=== PATIENT | female | born 1995 | race Caucasian/White ===

== ENCOUNTER 2016-11-05 20:11 | Emergency (ER) | payer OTHER ==
[~2016-11-05] VITALS: Ht 157.5 cm; Wt 54.1 kg
[2016-11-05 20:30] VITALS: BP 119/72; PULSE 102; RESP 12; O2SAT 100
--- NOTE | 2016-11-05 23:38 | ED.REPORT ---
HPI-Abd Pain F Under 39 Date of Service Nov 05, 2016 ED Provider: Morgan Drake DO A 20 year old female with a history of ovarian cysts presents to the ED complaining of abdominal pain onset 1.5 week. Her 1st ovarian cyst rupture occurred 1 month ago. She denies any STI. She does have a family doctor who has been informed on the patient's condition. Nursing Notes Stated Complaint: BAD ABD PAIN,WAS TOLD SHE HAD OVARIAN CYSTS Chief Complaint: Female Abdominal Pain Nursing Notes Reviewed: Yes Allergies: Coded Allergies: No Known Allergies (Unverified , 11/05/16) General Time Seen by MD: 23:37 Chief Complaint Abdominal pain Hx Obtained From: Patient Arrived By: Walk-in Sudden in Onset?: No Onset Occurred: More than a week ago... (1.5 weeks ago) Symptom Duration: Since onset Severity: Current: Moderate Severity: Maximum: Moderate Recent Healthcare: Recent doctor visit (Visited Doctor 1 month ago and was diagnosed with ovarian cysts. ) Similar Sx Previous: No Past Medical History Past Medical History ovarian cysts, not had US before. Denies any other pertinent medical history. [place] Social History: Good social support Ambulatory Status Independent Review of Systems Review of Systems Note: Denies having STI. Constitutional: Denies: Chills, Fever Respiratory: Denies: Non-productive cough Cardiovascular: Denies: Chest pain GI: Reports: Abdominal pain Complete sys rev & neg: except as marked. Physical Exam Initial Vital Signs Vital Signs (First) Date Time Temp Pulse Resp B/P Pulse Ox O2 Delivery O2 Flow Rate FiO2 11/05/16 20:30 37.1 102 12 119/72 100 Room Air Initial VS: Reviewed General/Constitutional: Awake, Alert Respiratory / Chest: Atraumatic, Breath sounds NL, Breath sounds = bilat, No respiratory distress, No rales, No rhonchi, No wheezing Cardiovascular: Heart rate NL, Regular rhythm, Heart sounds NL, No gallop, No murmurs, No rubs Abdomen: Soft, Non-tender Back: Atraumatic, Full range of motion Head / Eyes: Atraumatic, Normocephalic, PERRL, EOMI ENT: Atraumatic, Airway patent Skin: Atraumatic, Color NL, Warm, Dry Neurologic: Oriented X3, Speech NL Upper Extremity / MS: No swelling, No edema Interpretation & Diagnostics Interpretation & Diagnostics: Negative test. Lab Results Interpretation Result Diagram: 11/06/16 0035 11/06/16 0035 Test 11/05/16 23:48 11/06/16 00:35 Urine Color Dark yellow (YELLOW) Urine Appearance Cloudy (CLEAR,HAZY) Urine pH 6.0 (5.0-8.0) Urine Specific Erhard 1.020 (1.003-1.035) Urine Protein Negativemg/dL (NEG,TRACE) Urine Glucose (UA) Negativemg/dL (NEGATIVE) Urine Ketones 40mg/dL (NEGATIVE) Urine Occult Blood Negative (NEGATIVE) Urine Nitrite Negative (NEGATIVE) Urine Bilirubin Negative (NEGATIVE) Urine Urobilinogen 2.0mg/dL (NORMAL) Urine Leukocyte Esterase Trace (NEGATIVE) Urine RBC 0-2/hpf (0-2) Urine WBC 0-5/hpf (0-5) Urine Epithelial Cells Many/hpf (NONE-MOD) Urine Crystals None seen (NONE SEEN) Urine Bacteria Moderate/hpf (NONE-FEW) Urine Hyaline Casts None/lpf (NONE) Urine Granular Casts None seen (NONE SEEN) Urine Waxy Casts None seen (NONE SEEN) Urine Red Blood Cell Casts None seen (NONE SEEN) Urine White Blood Cell Casts None seen (NONE SEEN) Urine Mucus Present (None Seen) Urine Trichomonas None seen (NONE SEEN) Urine Yeast None (NONE SEEN) Urinalysis Comment None White Blood Count 10.0th/mm3 (3.8-10.1) Red Blood Count 4.42mil/mm3 (3.90-5.20) Hemoglobin 13.0g/dL (12.0-15.6) Hematocrit 37.6% (35.0-46.0) Mean Corpuscular Volume 85.1fL (81-100) Mean Corpuscular Hemoglobin 29.4pg (27.0-35.0) Mean Corpuscular Hemoglobin Concent 34.6% (32.0-37.0) Red Cell Distribution Width 12.6% (12.3-15.4) Platelet Count 231bil/L (150-400) Neutrophils (%) (Auto) 70.9% (40-74) Lymphocytes (%) (Auto) 19.7% (14-46) Monocytes (%) (Auto) 7.0% (4-12) Eosinophils (%) (Auto) 2.0% (0-5) Basophils (%) (Auto) 0.2% (0-3) Sodium Level 136mEq/L (134-144) Potassium Level 3.5mEq/L (3.5-5.2) Chloride Level 98mEq/L (97-108) Carbon Dioxide Level 22mmol/L (18-29) Blood Urea Nitrogen 8mg/dL (6-20) Creatinine 0.67mg/dL (0.57-1.00) Estimat Glomerular Filtration Rate 159mL/min (>59) Glucose Level 106mg/dL (60-99) Calcium Level 8.9mg/dL (8.5-10.1) Total Bilirubin 0.5mg/dL (0.0-1.2) Aspartate Amino Transf (AST/SGOT) 19U/L (0-50) Alanine Aminotransferase (ALT/SGPT) 19U/L (0-32) Alkaline Phosphatase 78U/L (25-150) Total Protein 6.8g/dL (6.4-8.4) Albumin 3.9g/dL (3.4-5.0) HCG Beta Subunit < 0.500mIU/mL Hold Chaves Top Tube Received (Received) Lab Results Interpretation: US PELVIS TRANSVAGINAL CONCLUSION: Small ammount of pelvic free fluid. Signed by Ajit Connolly, 11/06/2016 , 0047 Re-Eval/Medical Decision Med Decision/Clinical Course It is difficult to say exactly what we are finding on the imaging. Ovarian torsion and appendicitis and acute surgical emergencies have been ruled out. Course of [place] for pain. Most importantly referral to gynecology for close outpatient follow-up. Source of Hx: Old records Re-Evaluation/Progress #1: Time of Eval: 00:28 Re-Evaluation/Progress Note: Rechecked patient who has not had IV or blood work done yet. Re-Evaluation/Progress #2: Time of Eval: 02:45 Re-Evaluation/Progress Note: Rechecked patient, explained test results, diagnosis, and plan for discharge. Patient understands and agrees with the plan. All questions addressed. Counseled Regarding: Diagnosis, Lab results, Need for follow-up, When/why to return to ED Discharge & Departure Shift Change Sign-Out Response to Therapy: Improved Primary Impression: Pelvic pain Disposition: Home Patient Instructions: Chronic Pelvic Pain in Women (DC) Additional Instructions: The ultrasound shows a small amount of fluid in her abdomen. This may well be from a ruptured cyst. Otherwise ultrasound is reassuring. Laboratory work is normal. We are culturing her urine sample to look for signs of infection. I have also sent her urine for pelvic infection testing. Rest tonight. He quit diet. Take 1-2 [place] every 6 hours as needed for severe pain. Do not drive tonight or while taking the [place]. Do not consume acetaminophen or any other sedatives while taking the [place]. If the pain worsens or is not improved by morning returned him or to primary for recheck. Grossly can set up follow-up with the referral engineering equipment operator. Do not hesitate to return if any problems or any worsening symptoms. Referrals: [facility] (PCP) Lee Marks MD Attestation Portions of this note were transcribed by Geovanni Morse. I, Dr. Drake personally performed the history, physical exam and medical decision-making; I reviewed and confirmed the accuracy of the information in the transcribed note. Signed by : Gus Goldberg, 11/06/2016, 2114. copies to: Lee Marks MD; [facility] Todd P DO Nov 05, 2016 23:38 Geovanni Morse Nov 05, 2016 23:52
[2016-11-05] MEDS ORDERED: Ondansetron 2 mg/mL 2 mL Inj IVPUSH PRN (23:40)
[2016-11-05] MEDS ORDERED: 0.9% Sodium Chloride 1,000 ML IV ONE (23:40)
[2016-11-05 23:54] LABS: APPEARANCE,URINE CLOUDY (CLEAR,HAZY); COLOR,URINE DARK YELLOW (YELLOW); OCCULT BLOOD,URINE NEGATIVE (NEGATIVE)
[2016-11-06] MEDS ORDERED: _HYDROcodone/APAP 5-325 mg Tablet PO PRN (00:30)
[2016-11-06] MEDS: HYDROmorphone 0.5 mg/0.5 mL iSecure Syringe IVPUSH PRN ×2 (00:44→02:37)
[2016-11-06 00:46] LABS: BASOPHILS % (AUTO) 0.2 % (0-3); Mean Corpuscular Hemoglobin 29.4 pg (27.0-35.0); Mean Corpuscular Volume 85.1 fL (81-100); NEUTROPHILS % (AUTO) 70.9 % (40-74); Platelet Count 231 bil/L (150-400)
[2016-11-06 02:55] VITALS: BP 100/57; PULSE 90; RESP 24; O2SAT 96
--- NOTE | 2016-11-06 08:57 | DRSVH ---
PROCEDURE: US PELVIC SONOGRAM + TRANSVAGINAL SONOGRAM INDICATIONS: severe pelvic pain TECHNIQUE: Real-time scanning was performed of the pelvic organs, with image documentation. Additional endovagi nal scanning was necessary due to incomplete visualization of the adnexal and endometrial structures by transabdominal scanning. COMPARISON: None. FINDINGS: (orthogonal measurements) Uterus size: 7.69 cm Endometrium thickness: 8.5 mm Right ovary size: 3.27 cm, 2.00 cm Left ovary size: 1.82 cm, 2.25 cm, 1.15 cm Transabdominal scanning: Limited scanning through the kidneys shows no hydronephrosis. No pathologi c free abdominal or pelvic fluid. Endovaginal scanning: Uterus: Uterus is normal in size and appearance. Endometrium is within normal physiologic limits. Subcentimeter endometrial cyst present. Ovaries: Small nonhemorrhagic free fluid. IMPRESSION: Small nonhemorrhagic fluid within the posterior cul-de-sac otherwise no definite source f or pelvic pain identified. Dictated by: Kit OJEDA Interpreted: Paulina Onofre MD on 11/06/2016 at 8:54 Transcribed by: YASH on 11/06/2016 at 8:56 Approved by: Paulina Onofre M.D. on 11/06/2016 at 9:34
== END 2016-11-06 02:56 | disposition home or self-care (01) ==
LOC: SED 20:11
DX: R10.2 Pelvic and perineal pain (principal)
CPT/HCPCS: 76830; 76856; 80053; 81001; 84702; 85025; 87491; 87591; 96361; 96374; 96375; 96376; 99285; J1170; J1885; J2405; J7030